=== PATIENT | male | born 1930 | race Caucasian/White ===

== ENCOUNTER 2016-11-01 07:51 | Inpatient (IN) | payer MEDICARE, OTHER ==
[~2016-11-01] VITALS: Ht 175.3 cm; Wt 63.0 kg
[~2016-11-01 07:51] MED LIST: ACET-1600 PO; ACET500T63 PO; APIX5TAB PO; ASPI-496 PO; ATOR40TA PO; CLOP75TA52 PO; DOCU-131 PO; DONE10TA14 PO; MEMA10TA PO; MIRA50TA PO; OSEL75CA PO; PANT40TA3 PO; ROSU5TAB PO; TAMS-11 PO; TERA10CA3 PO; TRAM50TA2 PO; VERA180T56 PO; VIT D; [UNRECOGNIZED DRUG - OTHER] PO
[2016-11-01 08:20] LABS: HEMATOCRIT 48.3 % (39.2-51.8); HEMOGLOBIN 15.9 g/dL (13.7-18.0); WHITE BLOOD COUNT 8.5 x10^3/uL (3.4-10)
[2016-11-01] MEDS ORDERED: SODIUM CHLORIDE FLUSH 10ML SYR IVF ONE (08:30)
[2016-11-01 08:34] LABS: ASPARTATE AMINO TRANSFERASE 18 U/L (15-37); BLOOD UREA NITROGEN 24 mg/dL (7-18)
[2016-11-01] MEDS ORDERED: CLEVIDIPINE 50 ML IV ONE (08:54)
[2016-11-01] MEDS ORDERED: CLEVIDIPINE 100 ML IV PRN ×2 (09:00→11:00)
[2016-11-01] MEDS ORDERED: ACET-76 PO (09:30)
[2016-11-01] MEDS ORDERED: TRAM50TA2 PO (09:30)
[2016-11-01] MEDS ORDERED: FLUO10CA7 PO (09:30)
[2016-11-01] MEDS ORDERED: APIX2.5T PO (09:30)
[2016-11-01] MEDS ORDERED: MORPHINE SULFATE 4 MG/ML, 1ML IVPush PRN (10:00)
[2016-11-01] MEDS ORDERED: ONDANSETRON 2MG/ML, 2ML IVPush ONE (10:00)
[2016-11-01] MEDS ORDERED: MORPHINE SULFATE 4 MG/ML, 1ML ONE (10:21)
[2016-11-01] MEDS ORDERED: ONDANSETRON 2MG/ML, 2ML ONE (10:21)
[2016-11-01] MEDS ORDERED: ENALAPRILAT 1.25 MG/ML, 2ML IVPush PRN (10:30)
[2016-11-01] MEDS ORDERED: morphine SULFATE 10 MG/ML, 1ML IVPush PRN ×2 (10:30→16:30)
[2016-11-01] MEDS ORDERED: ONDANSETRON 2MG/ML, 2ML IVPush PRN (10:30)
[2016-11-01] MEDS ORDERED: ANTI INHIBITOR COAGULANT COMP IVPush ONE (10:30)
[2016-11-01] MEDS ORDERED: LORazepam 2 MG/ML, 1ML IVPush PRN ×2 (10:30→14:30)
[2016-11-01] MEDS ORDERED: SODIUM CHLORIDE FLUSH 10ML SYR IVF PRN (11:00)
[2016-11-01] MEDS ORDERED: LORazepam 2 MG/ML, 1ML ONE (11:53)
[2016-11-01 14:51] VITALS: BP 138/74
[2016-11-01] MEDS: D5%-0.9% NACL+KCL 20MEQ 1,000 ML IV SCH (15:35)
[2016-11-02] MEDS: D5%-0.9% NACL+KCL 20MEQ 1,000 ML IV SCH (03:57)
[2016-11-02 04:30] LABS: HEMATOCRIT 48.6 % (39.2-51.8); HEMOGLOBIN 16.2 g/dL (13.7-18.0); WHITE BLOOD COUNT 19.7 x10^3/uL (3.4-10)
[2016-11-02 04:43] LABS: BLOOD UREA NITROGEN 23 mg/dL (7-18)
[2016-11-02 04:57] LABS: ASPARTATE AMINO TRANSFERASE 15 U/L (15-37)
[2016-11-02 05:35] LABS: DIFF TOTAL CELLS COUNTED 100 CELL DIFF
[2016-11-02 05:38] LABS: VERIFY COUNTS? YES
[2016-11-02] MEDS: LOSARTAN 25MG TABLET PO SCH ×2 (09:00→21:00)
[2016-11-02] MEDS: CEFTRIAXONE PMX 1GM/50ML 50 ML IV SCH (09:04)
[2016-11-02] MEDS ORDERED: LORazepam 2 MG/ML, 1ML IVPush PRN (14:30)
[2016-11-03 04:21] LABS: HEMATOCRIT 45.9 % (39.2-51.8); HEMOGLOBIN 15.2 g/dL (13.7-18.0); WHITE BLOOD COUNT 15.2 x10^3/uL (3.4-10)
[2016-11-03 04:28] LABS: BLOOD UREA NITROGEN 21 mg/dL (7-18)
[2016-11-03 04:31] LABS: ASPARTATE AMINO TRANSFERASE 16 U/L (15-37)
[2016-11-03] MEDS: CEFTRIAXONE PMX 1GM/50ML 50 ML IV SCH (08:45)
[2016-11-03] MEDS: hydrALAzine 20 MG/ML, 1ML IV PRN ×2 (08:47→23:59)
[2016-11-03] MEDS: LOSARTAN 25MG TABLET PO SCH (08:57)
[2016-11-03] MEDS: HYDROcodone/APAP 5/325 TABLET PO PRN (16:36)
[2016-11-03] MEDS ORDERED: ALBUTEROL/IPRATROPIUM 2.5MG/0.5MG, 3 ML NPPB PRN (20:00)
[2016-11-03] MEDS: LOSARTAN 50MG TABLET PO SCH (21:08)
[2016-11-04] MEDS: hydrALAzine 20 MG/ML, 1ML IV PRN (00:15)
[2016-11-04] MEDS: HYDROcodone/APAP 5/325 TABLET PO PRN (00:40)
[2016-11-04] MEDS: ENALAPRILAT 1.25 MG/ML, 2ML IVPush PRN ×2 (03:55→05:04)
[2016-11-04 04:39] LABS: HEMATOCRIT 49.2 % (39.2-51.8); HEMOGLOBIN 16.3 g/dL (13.7-18.0); WHITE BLOOD COUNT 15.4 x10^3/uL (3.4-10)
[2016-11-04 04:55] LABS: BLOOD UREA NITROGEN 30 mg/dL (7-18)
[2016-11-04] MEDS: LOSARTAN 50MG TABLET PO SCH ×2 (07:34→21:49)
[2016-11-04] MEDS: CEFTRIAXONE PMX 1GM/50ML 50 ML IV SCH (09:10)
[2016-11-05] MEDS: hydrALAzine 20 MG/ML, 1ML IV PRN (07:39)
[2016-11-05] MEDS: LOSARTAN 50MG TABLET PO SCH ×2 (09:00→21:26)
[2016-11-05] MEDS: CEFTRIAXONE PMX 1GM/50ML 50 ML IV SCH (12:31)
[2016-11-05 21:16] VITALS: BP 171/94
[2016-11-05] MEDS: CEFDINIR 300 MG CAPSULE PO SCH (21:26)
[2016-11-06 01:29] VITALS: BP 165/92
[2016-11-06] MEDS ORDERED: SODIUM CHLORIDE 0.9% 1,000 ML IV SCH (04:00)
[2016-11-06 05:48] LABS: ASPARTATE AMINO TRANSFERASE 26 U/L (15-37); BLOOD UREA NITROGEN 37 mg/dL (7-18)
[2016-11-06] MEDS: CEFDINIR 300 MG CAPSULE PO SCH ×2 (08:57→21:06)
[2016-11-06] MEDS: LOSARTAN 50MG TABLET PO SCH ×2 (08:57→21:06)
[2016-11-06 09:55] VITALS: BP 157/100
[2016-11-06] MEDS ORDERED: AMLODIPINE 5 MG TABLET PO SCH (14:00)
[2016-11-06] MEDS ORDERED: LORazepam 0.5MG TABLET PO PRN (14:00)
[2016-11-06] MEDS ORDERED: DOXA1TAB PO (14:07)
[2016-11-06] MEDS ORDERED: HYDR-3342 PO (14:07)
[2016-11-06] MEDS ORDERED: LOSA50TA2 PO (14:07)
[2016-11-06] MEDS ORDERED: LORA-445 PO (14:07)
[2016-11-06 14:25] VITALS: BP 180/121
[2016-11-06 19:10] VITALS: BP 163/92
[2016-11-06] MEDS ORDERED: TAMSULOSIN 0.4 MG CAP.ER.24H PO SCH (21:00)
[2016-11-06] MEDS ORDERED: DOXAZOSIN 1MG TABLET PO SCH (21:00)
[2016-11-07 01:45] VITALS: BP 151/90
[2016-11-07 07:31] VITALS: BP 173/79
[2016-11-07] MEDS: CEFDINIR 300 MG CAPSULE PO SCH (08:50)
[2016-11-07] MEDS: LOSARTAN 50MG TABLET PO SCH (08:50)
[2016-11-07 12:48] VITALS: BP 142/77
[2016-11-07 15:37] VITALS: BP 159/92
== END 2016-11-07 19:14 | DRG 64 ==
LOC: ED 08:31 → EDIP 10:24 → CCU 12:37 → 3NE 11-05 19:05
PROVIDERS: ADMIT Internal Medicine; ATTEND Internal Medicine
DX: I61.4 Nontraumatic intracerebral hemorrhage in cerebellum (principal); N17.0 Acute kidney failure with tubular necrosis; D68.9 Coagulation defect, unspecified; R13.10 Dysphagia, unspecified; M48.54XA Collapsed vertebra, not elsewhere classified, thoracic region, initial encounter for fracture; I48.2 Chronic atrial fibrillation; I16.9 Hypertensive crisis, unspecified; F03.90 Unspecified dementia, unspecified severity, without behavioral disturbance, psychotic disturbance, mood disturbance, and anxiety; W18.30XA Fall on same level, unspecified, initial encounter; E11.9 Type 2 diabetes mellitus without complications; I10 Essential (primary) hypertension; Z66 Do not resuscitate; I25.10 Atherosclerotic heart disease of native coronary artery without angina pectoris; I69.391 Dysphagia following cerebral infarction; K21.9 Gastro-esophageal reflux disease without esophagitis; M19.90 Unspecified osteoarthritis, unspecified site; M85.80 Other specified disorders of bone density and structure, unspecified site; N28.9 Disorder of kidney and ureter, unspecified; N40.1 Benign prostatic hyperplasia with lower urinary tract symptoms; R33.8 Other retention of urine; S09.90XA Unspecified injury of head, initial encounter; Y93.89 Activity, other specified; Y92.89 Other specified places as the place of occurrence of the external cause; Z79.01 Long term (current) use of anticoagulants; Z79.899 Other long term (current) drug therapy; Z86.73 Personal history of transient ischemic attack (TIA), and cerebral infarction without residual deficits
CPT/HCPCS: 36415; 51702; 70450; 71010; 72110; 72125; 74230; 80048; 80053; 80061; 81003; 83880; 84443; 85025; 85610; 85730; 86850; 86900; 87081; 93005; 96365; 96366; 96375; J0696; J2405; J7198; 92523-GN; C9248; J0360; J2060; J3480; J7030; J7050